=== PATIENT | female | born 1985 | race Hispanic/Latino ===

== ENCOUNTER 2019-03-18 20:20 | Emergency (ER) | payer SELFPAY ==
[~2019-03-18 20:20] MED LIST: IBUPROFEN600 MG PO; PRENATAL1 TA1 PO
[2019-03-18 21:01] VITALS: BP 109/68
== END 2019-03-18 22:53 | disposition left against medical advice (07) | DRG 951 ==
LOC: ED 20:20 → LWOBS 22:52
DX: Z53.21 Procedure and treatment not carried out due to patient leaving prior to being seen by health care provider (principal)